=== PATIENT | male | born 1955 | race Two or more races ===

== ENCOUNTER 2023-06-06 08:15 | Inpatient (IN) | payer OTHER ==
[~2023-06-06] VITALS: Ht 177.8 cm; Wt 79.4 kg
[2023-06-09] MEDS ORDERED: ATACAND32 MG PO (13:08)
[2023-06-09] MEDS ORDERED: AMLO PO (13:09)
[2023-06-09] MEDS ORDERED: GLUMETZA500 MG PO (13:10)
[2023-07-01 07:56] LABS: HEMATOCRIT 35.7 % (39.0-48.0); HEMOGLOBIN 11.8 g/dL (13-16.00); MEAN CELL VOLUME 84.6 fL (80.0-100.00); MEAN CORPUSCULAR HEMOGLOBIN 27.9 pg (27.00-32.0); PLATELET COUNT 210 K/uL (150-450); RED BLOOD COUNT 4.22 M/uL (4.00-6.00); RED CELL DISTRIBUTION WIDTH 13.6 % (11.5-14.5)
[2023-07-01 08:42] LABS: ALBUMIN 2.8 gm/dL (3.4-5.0); CREATININE SERUM 0.79 mg/dL (0.70-1.30); GFR 98.43; PHOSPHOROUS 2.8 mg/dL (2.5-4.9); POTASSIUM 3.76 mEq/L (3.5-5.1)
== END 2023-07-01 13:32 | disposition home or self-care (01) | DRG 708 ==
LOC: SURH 06-11 07:00 → O/R 06-30 05:30 → SURH 06-30 08:30
PROVIDERS: ADMIT Urology; ATTEND Urology
PROC: 07BC4ZZ Excision of Pelvis Lymphatic, Percutaneous Endoscopic Approach (ICD-10-PCS; 2023-06-30)
PROC: 8E0W4CZ Robotic Assisted Procedure of Trunk Region, Percutaneous Endoscopic Approach (ICD-10-PCS; 2023-06-30)
PROC: 0VT04ZZ Resection of Prostate, Percutaneous Endoscopic Approach (ICD-10-PCS; principal; 2023-06-30 08:30)
DX: C61 Malignant neoplasm of prostate (principal); Z20.822 Contact with and (suspected) exposure to COVID-19